=== PATIENT | male | born 1950 | race Caucasian/White ===

== ENCOUNTER 2020-03-29 16:04 | Emergency (ER) | payer OTHER ==
[~2020-03-29] VITALS: Ht 172.7 cm; Wt 68.0 kg
[2020-03-29 16:08] VITALS: BP 153/97
[2020-03-29 16:13] VITALS: BP 148/82
--- NOTE | 2020-03-29 16:19 | NUR ---
BIBA FROM HOME, PT HAD FALL WHILE WALKING OUTSIDE AND SUFFERED LOC FOR AN UNKNOWN AMOUNT OF TIME. PT WAS FOUND BY SON LAYING PRONE OUTSIDE. LACERATION NOTED LEFT EYEBROW, BILAT HANDS AND BILAT KNEES. AAOX1 (SELF), AT BASELINE PER EMS. PMH: DEMENTIA. PERRLA, 2MM. EQUAL BILAT PINNER PRINTED CIRCUIT BOARDS STRENGTH. PT IS POOR HISTORIAN. NO OBVIOUS DEFORMITIES NOTED. PMH: DEMENTIA
--- NOTE | 2020-03-29 16:30 | NUR ---
PT UNABLE TO STAY STEADY FOR CT SCAN, ERMD NOTIFIED. MEDS ORDERED.
--- NOTE | 2020-03-29 16:30 | NUR ---
[facility] PHONE NUMBER JAVIER: [phone]
[2020-03-29] MEDS: HALOPERIDOL IM 5 MG/ML VIAL IM ONE (16:51)
[2020-03-29 16:54] LABS: BASOPHILS % (AUTO) 0.6 % (0.0-2.0); EOSINOPHILS # (AUTO) 0.1 K/uL (0-0.4); EOSINOPHILS % (AUTO) 1.2 % (0.0-4.0); HEMATOCRIT 36.3 % (36-52); LYMPHOCYTES # (AUTO) 0.9 K/uL (2.0-11.5); LYMPHOCYTES % (AUTO) 14.5 % (20.5-51.1); MEAN CORPUSCULAR HEMOGLOBIN 30 pg (27-31); MEAN CORPUSCULAR HGB CONC 33 g/dL (33-37); MEAN CORPUSCULAR VOLUME 91.6 fL (80-94); MONOCYTES # (AUTO) 0.4 K/uL (0.8-1.0); MONOCYTES % (AUTO) 6.5 % (1.7-9.3); NEUTROPHILS % (AUTO) 77.2 % (42.2-75.2); PLATELET COUNT (AUTO) 200 K/uL (140-450); RED BLOOD CELL COUNT(AUTO) 3.97 MIL/uL (4.20-6.10); RED CELL DISTRIBUTION WIDTH 13.3 % (11.6-13.7); WHITE BLOOD COUNT (AUTO) 6.4 K/uL (4.8-10.8)
--- NOTE | 2020-03-29 17:00 | NUR ---
PT CONTINUES TO ATTEMPT TO CLIMB OUT OF BED AND MOVE AROUND, MEDICATIONS ORDERED
[2020-03-29 17:01] LABS: ANION GAP 18.7 (8-16); CARBON DIOXIDE 26.4 mmol/L (21-32); CHLORIDE 100 mmol/L (98-107); CREATININE 1.4 mg/dL (0.6-1.3); GLUCOSE 147 mg/dL (74-106); POTASSIUM 4.1 mmol/L (3.5-5.1); SODIUM SERUM 141 mmol/L (136-145); UREA NITROGEN, BLOOD 26 mg/dL (7-18)
[2020-03-29] MEDS: LORazepam 2 MG/ML VIAL IM/IVP STA (17:19)
--- NOTE | 2020-03-29 17:20 | NUR ---
PT PULLED OUT IV ACCESS.
[2020-03-29] MEDS: MIDAZOLAM 2 MG/2 ML VIAL IM ONE (17:58)
--- NOTE | 2020-03-29 18:19 | NUR ---
PT TAKEN TO CT
--- NOTE | 2020-03-29 18:26 | NUR ---
PT BACK FROM CT SCAN
--- NOTE | 2020-03-29 19:21 | NUR ---
RECIEVED REPORT FROM LICHA [facility]. TRANSFER OF CARE AT THIS TIME.
[2020-03-29] MEDS ORDERED: BACITRACIN OINT 500 UNITS/GM PKT TP ONE (19:27)
--- NOTE | 2020-03-29 19:30 | NUR ---
PT LAC CLEANED AND IRRIGATED WITH NORMAL SALINE, DURA BOUND APPLIED BY ERMD WOUNDS DRESSED WITH BANDAIDS X4
[2020-03-29 20:17] VITALS: BP 167/84
--- NOTE | 2020-03-29 20:17 | NUR ---
Patient discharged with v/s stable. Written and verbal after care instructions given and explained. Patient verbalized understanding. Wheel Chair Assisted with by caregiver. All questions addressed prior to discharge. Advised to follow up with PMD.
== END 2020-03-29 20:17 | disposition home or self-care (01) ==
LOC: MED 16:04
DX: S01.112A Laceration without foreign body of left eyelid and periocular area, initial encounter (principal); E11.9 Type 2 diabetes mellitus without complications; F03.90 Unspecified dementia, unspecified severity, without behavioral disturbance, psychotic disturbance, mood disturbance, and anxiety; W19.XXXA Unspecified fall, initial encounter; Y93.89 Activity, other specified; Y92.89 Other specified places as the place of occurrence of the external cause; Y99.8 Other external cause status
CPT/HCPCS: 12011; 36415; 70450; 70486; 72125; 80048; 84484; 85025; 90471; 90715; 96372; 99285; G0482; J1630; J2060; J2250